=== PATIENT | female | born 1985 | race Caucasian/White ===

== ENCOUNTER 2020-10-24 19:46 | Emergency (ER) | payer BC, OTHER ==
[~2020-10-24] VITALS: Ht 170.2 cm; Wt 85.0 kg
[2020-10-24 19:51] VITALS: TEMP 98.2
[2020-10-24] MEDS ORDERED: DICLEGIS PO (20:12)
[2020-10-24 20:22] LABS: COLLECTION METHOD CLEAN CATCH
[2020-10-24 20:28] LABS: BASO % 0.4 % (0.0-2.0); EOS # 0.1 (0.0-0.7); EOS % 0.6 % (0-4.0); GRAN # 7.1 (1.4-6.5); GRAN % 68.9 % (42.2-75.2); HEMATOCRIT 38.3 % (37.0-47.0); HEMOGLOBIN 13.6 g/dl (12.5-16.0); LYMPH # 2.5 (1.2-3.4); LYMPH % 23.9 % (20.0-51.0); MEAN CELL VOLUME 89 fl (80.0-100.0); MEAN CORPUSCULAR HEMOGLOBIN 31 pg (27.0-31.0); MEAN CORPUSCULAR HGB CONC 36 g/dl (33.0-37.0); MEAN PLATELET VOLUME 10.4 fl (7.4-10.4); MONO # 0.6 (0.1-0.6); MONO % 5.9 % (1.7-9.3); PLATELET COUNT 200 K/mm3 (130-400); RED BLOOD COUNT 4.33 M/mm3 (4.10-5.30); REDCELL DISTRIBUTION WIDTH-CV 12.3 % (11.5-14.5)
[2020-10-24 20:31] LABS: ALBUMIN 4.2 gm/dL (3.5-5.0); BILIRUBIN,TOTAL 0.5 mg/dL (0.0-1.0); CREATININE, serum 0.57 (0.52-1.25); POTASSIUM 3.6 mmol/L (3.4-5.0); TOTAL PROTEIN 7.2 gm/dL (6.4-8.2)
[2020-10-24 20:39] LABS: MUCOUS Present /lpf; PH 6 (5-8); URINE APPEARANCE Hazy; URINE BACTERIA Rare /hpf; URINE BILIRUBIN Negative (NEGATIVE); URINE BLOOD Negative (NEGATIVE); URINE COLOR Yellow; URINE GLUCOSE Negative (NEGATIVE); URINE KETONE Trace (NEGATIVE); URINE LEUKOCYTE ESTERASE Negative (NEGATIVE); URINE NITRATE Negative (NEGATIVE); URINE PROTEIN(semi-quant) Negative (NEGATIVE); URINE RBC 0-2 /hpf; URINE UROBILINOGEN Negative (NEGATIVE)
[2020-10-24] MEDS ORDERED: MACROBID 1100 MG/CAP PO (20:50)
[2020-10-24 22:17] VITALS: BP 131/81; PULSE 88
== END 2020-10-24 22:18 | disposition home or self-care (01) ==
LOC: COL.ER 19:46
PROVIDERS: Emergency Medicine
DX: O21.0 Mild hyperemesis gravidarum (principal); O99.511 Diseases of the respiratory system complicating pregnancy, first trimester; J45.909 Unspecified asthma, uncomplicated; Z3A.08 8 weeks gestation of pregnancy
CPT/HCPCS: J2765; J7120

== ENCOUNTER 2021-04-24 00:49 | Outpatient (CLI) | payer BC, OTHER ==
[~2021-04-24] VITALS: Ht 170.2 cm; Wt 97.3 kg
[~2021-04-24 00:49] MED LIST: DICLEGIS PO; MACROBID 1100 MG/CAP PO
--- NOTE | 2021-04-24 01:00 | NUR ---
0100- PATIENT AND SPOUSE AMBULATORY TO THE UNIT. ORIENTATED TO ROOM AND CHANGED INTO CLEAN GOWN. PATIENT INSTRUCTED TO GIVE CLEAN CATCH UA SAMPLE AT THIS TIME WELL. PATIENT IS A AT 34.2 WEEKS WHO IS COVID +. PATIENT REPORTS DIZZINESS AND BLURRED VISION WITH "FOGGY" HEADACHE. PATIENT WAS NOT FEELING WELL AT HOME WITH BLURRED VISION AND DIZZINESS AND TOOK HER BP AND IT WAS ELEVATED TWICE AT HOME. PATIENT CALLED PROVIDER AND WAS INSTRUCTED TO COME IN AND BE EVALUATED. PATIENT REPORTS GFM, NO LOF, NO BLEEDING AND NO CONTRACTIONS. 0105- EFM AND TOCO ON AND TRACING. VITALS TAKEN, ASSESSMENT COMPLETED. PLAN OF CARE DISCUSSED. PATIENT VERBALIZED UNDERSTANDING WITH NO FURTHER QUESTIONS OR CONCERNS. CALL LIGHT WITHIN REACH.
[2021-04-24 01:18] LABS: COLLECTION METHOD CLEAN CATCH
[2021-04-24 01:23] LABS: BASO % 0.1 % (0.0-2.0); EOS # 0.1 K/mm3 (0.0-0.7); GRAN # 4.4 K/mm3 (1.4-6.5); GRAN % 66.1 % (42.2-75.2); LYMPH # 1.8 K/mm3 (1.2-3.4); LYMPH % 26.8 % (20.0-51.0); MEAN CELL VOLUME 89 fl (80.0-100.0); MEAN CORPUSCULAR HEMOGLOBIN 32 pg (27-31); MEAN CORPUSCULAR HGB CONC 35 g/dl (33.0-37.0); MEAN PLATELET VOLUME 12.5 fl (7.4-10.4); MONO # 0.4 K/mm3 (0.1-0.6); MONO % 5.7 % (1.7-9.3); PLATELET COUNT 112 K/mm3 (130-400); RED BLOOD COUNT 4.12 M/mm3 (4.10-5.30)
[2021-04-24 01:24] LABS: HEMATOCRIT 36.8 % (37.0-47.0)
[2021-04-24 01:25] LABS: PH 7 (5-8); SQUAMOUS EPITHELIAL 0-2 /hpf (0-10); URINE APPEARANCE Clear (CLEAR/HAZY); URINE BACTERIA Rare /hpf (NONE SEEN); URINE BILIRUBIN Negative (NEGATIVE); URINE BLOOD Negative (NEGATIVE); URINE COLOR Straw (YELLOW); URINE GLUCOSE 2+ (NEGATIVE); URINE KETONE Negative (NEGATIVE); URINE LEUKOCYTE ESTERASE Negative (NEGATIVE); URINE NITRATE Negative (NEGATIVE); URINE PROTEIN(semi-quant) Negative (NEGATIVE); URINE RBC 0-2 /hpf (0-2); URINE UROBILINOGEN Negative (NEGATIVE)
[2021-04-24 01:37] LABS: ALBUMIN 2.7 gm/dL (3.5-5.0); BILIRUBIN,TOTAL 0.3 mg/dL (0.2-1.2); CALCIUM 8.9 mg/dL (8.4-10.2); CREATININE, serum 0.64 mg/dL (0.57-1.11); TOTAL PROTEIN 6.2 gm/dL (6.2-8.1)
[2021-04-24] MEDS ORDERED: ASPIRIN 81M81 MG/TA2 PO (01:41)
[2021-04-24] MEDS ORDERED: PRENATAL TABLET PO (01:41)
[2021-04-24 01:55] VITALS: BP 137/83; PULSE 93; TEMP 98
== END 2021-04-24 02:10 | disposition home or self-care (01) ==
LOC: LDRO 00:49
PROVIDERS: Obstetrics & Gynecology
DX: O13.3 Gestational [pregnancy-induced] hypertension without significant proteinuria, third trimester (principal); O26.893 Other specified pregnancy related conditions, third trimester; R42 Dizziness and giddiness; H53.9 Unspecified visual disturbance; Z3A.34 34 weeks gestation of pregnancy